=== PATIENT | male | born 1970 | race Caucasian/White ===

== ENCOUNTER 2017-06-01 02:17 | Emergency (ER) | payer MEDICARE, OTHER ==
[~2017-06-01] VITALS: Ht 172.7 cm; Wt 100.0 kg
[~2017-06-01 02:17] MED LIST: BENZ1TAB7 PO; CITA20TA6 PO; HAL2 PO; LEVO25TA53 PO; LOSA50TA6 PO; NITR0.4T32 SL; OMEP20CA16 PO; SIMV20TA6 PO
[2017-06-01 02:22] VITALS: Ht 172.7 cm; Wt 100.0 kg
[2017-06-01] MEDS ORDERED: ONDANSETRON 4 MG INJ IV STA (02:33)
[2017-06-01] MEDS ORDERED: MECLIZINE 12.5 MG TAB PO ONE (03:00)
[2017-06-01 03:11] LABS: BASOPHIL # 0.1 10^3/ul (0.0-0.1); EOSINOPHILS # 0.4 10^3/ul (0.0-0.5); EOSINOPHILS % 5.1 % (0.0-7.0); HEMATOCRIT 44.4 % (42.0-52.0); LYMPHOCYTES # 2.3 10^3/ul (0.8-2.9); LYMPHOCYTES % 31.8 % (15.0-51.0); MEAN CORPUSCULAR HEMOGLOBIN 30.5 pg (29.0-33.0); MEAN CORPUSCULAR HGB CONC 33.8 g/dl (32.0-37.0); MEAN CORPUSCULAR VOLUME 90.4 fl (82.0-101.0); MEAN PLATELET VOLUME 10.2 fl (7.4-10.4); MONOCYTE # 0.7 10^3/ul (0.3-0.9); MONOCYTES % 10.1 % (0.0-11.0); NEUTROPHIL # 3.8 10^3/ul (1.6-7.5); NEUTROPHILS % 51.7 % (39.0-77.0); PLATELET COUNT 264 10^3/UL (140-415); RED BLOOD COUNT 4.91 10^6/ul (4.70-6.10); RED CELL DISTRIBUTION WIDTH 12.4 % (11.5-14.5); WHITE BLOOD COUNT 7.2 10^3/ul (4.8-10.8)
[2017-06-01 03:30] LABS: INR 0.96; PARTIAL THROMBOPLASTIN TIME 28.8 Sec (25.0-35.0); PROTIME 12.8 Sec (12.2-14.2)
[2017-06-01 03:31] LABS: ANION GAP 15 (8-16); BLOOD UREA NITROGEN 17 mg/dl (7-20); CALCIUM 8.8 mg/dl (8.4-10.2); CARBON DIOXIDE 27 mmol/L (21-31); CHLORIDE 105 mmol/L (97-110); CREATININE 0.98 mg/dl (0.61-1.24); GLUCOSE 124 mg/dl (70-220); POTASSIUM 4.7 mmol/L (3.5-5.1); SODIUM 142 mmol/L (135-144)
--- NOTE | 2017-06-01 03:59 | RADRPT ---
PROCEDURE: CT BRAIN WITHOUT CONTRAST CLINICAL INDICATION: 46-year-old male with headaches and dizziness. TECHNIQUE: The study was performed utilizing a GE [employer] VCT 64-slice CT scanner. Direct axia l sections were obtained from the foramen magnum to the vertex without the use of intravenous contra st material. Sagittal and coronal reformations were obtained. One or more the following dose reduct ion techniques were utilized: automated exposure control, adjustment of the mA and/or kV according t o patient's size and/or the use of iterative reconstruction technique. The images were viewed on a PACS workstation. CTD/vol = 45.0 mGy; Total Exam DLP = 810.3 mGy-cm. COMPARISON: None. FINDINGS: The ventricles have a normal size, shape and position. There is no evidence for mass effect or midl ine shift. There are no intracranial areas of abnormal attenuation. There is no evidence for acute intra or extra-axial blood. The bony calvarium is intact. There is mild mucosal thickening within t he ethmoid air cells bilaterally. No air-fluid levels are noted. The mastoid air cells are without s ignificant soft tissue. IMPRESSION: 1. The intracranial contents are unremarkable on this noncontrast CT scan of the brain. 2. Mild mucosal thickening bilateral ethmoid air cells. .Marin Arenas MD, Date Time Electronically viewed and signed by .Marin Arenas MD, on 06/01/2017 03:59 .M/
--- NOTE | 2017-06-01 04:00 | RADRPT ---
PROCEDURE: CHEST - 1 VIEW CLINICAL INDICATION: 46-year-old male with chest pain and headaches. TECHNIQUE: A single frontal AP upright portable view of the chest was performed. The images were reviewed on a PACS workstation. COMPARISON: CR CHEST 09/02/2015; CR PORTABLE CHEST 06/26/2008 FINDINGS: The cardiomediastinal silhouette is within normal limits. There is a shallow inspiration. There is m ild bibasilar subsegmental atelectasis. There is no evidence for an infiltrate. There is no eviden ce for congestive heart failure. There is no evidence for pneumothorax. The osseous structures are i ntact. IMPRESSION: Shallow inspiration with mild bibasilar subsegmental atelectasis. .Marin Arenas MD, Date Time Electronically viewed and signed by .Marin Arenas MD, on 06/01/2017 04:00 .M/
[2017-06-01 04:02] LABS: TROPONIN-I < 0.012 ng/ml (0.00-0.12)
[2017-06-01 04:37] VITALS: BP 135/94; PULSE 89; RESP 18
[2017-06-01] MEDS ORDERED: NIT4 SL (05:29)
[2017-06-01] MEDS ORDERED: MECL12.574 PO (05:42)
--- NOTE | 2017-06-01 05:42 | ERD ---
ER Documentation Chief Complaint Date/Time DATE: 06/01/17 TIME: 05:40 Chief Complaint dizziness this evening, denies pain, SOB, N/V HPI This is a 46-year-old male brought in by ambulance secondary seeding. He says he feels nervous. He has been mild typical vomiting. Patient brought in by rescue. No head trauma. None no focal neurological complaints. No chest pain. Shortness of breath. No other current complaints. Patient is demented episode of dizziness like this before per the patient. No change in medications. ROS All systems reviewed and are negative except as per history of present illness. Medications Home Meds Active Scripts Nitroglycerin* (Nitroglycerin* SL) 0.4 Mg Tab.subl, 0.4 MG SL Q5MIN Y for CHEST PAIN, #30 BOTTLE Prov:LUCIUS CARRTiago 09/03/15 Reported Medications Nitroglycerin* (Nitrostat*) 0.4 Mg Tab.subl, 0.4 MG SL Q5MIN Y for CHEST PAIN, BOTTLE 06/01/17 Citalopram Hydrobromide* (Citalopram Hydrobromide*) 20 Mg Tablet, 30 MG PO DAILY , #30 TAB 09/02/15 Benztropine Mesylate* (Benztropine Mesylate*) 1 Mg Tablet, 1 MG PO DAILY 09/02/15 Haloperidol* (Haldol*) 2 Mg Tab, 2 MG PO DAILY, TAB 09/02/15 Losartan Potassium* (Losartan Potassium*) 50 Mg Tablet, 50 MG PO DAILY, #30 09/02/15 Levothyroxine Sodium* (Levothyroxine Sodium*) 25 Mcg Tablet, 25 MCG PO DAILY 09/02/15 Discontinued Reported Medications Omeprazole* (Omeprazole*) 20 Mg Capsule.dr, 20 MG PO DAILY 09/02/15 Simvastatin (Simvastatin) 20 Mg Tablet, 20 MG PO DAILY 09/02/15 Allergies Allergies: Coded Allergies: codeine (Unverified Allergy, Severe, 06/01/17) Penicillins (Unverified Allergy, Mild, 06/01/17) chlorpromazine (Unverified Allergy, Mild, 06/01/17) banana (Unverified Adverse Reaction, Intermediate, 06/01/17) PMhx/Soc History of Surgery: Yes (ORAL) Anesthesia Reaction: No Hx Neurological Disorder: No Hx Respiratory Disorders: No Hx Cardiac Disorders: Yes (ANGINA,PALPITATION) Hx Psychiatric Problems: Yes (DEPRESSION,SCHIZOPHRENIA) Hx Miscellaneous Medical Probl: Yes (HTN ) Hx Alcohol Use: No Hx Substance Use: No Hx Tobacco Use: No Smoking Status: Former smoker Physical Exam Vitals Vital Signs Date Time Temp Pulse Resp B/P Pulse Ox O2 Delivery O2 Flow Rate FiO2 06/01/17 04:37 89 18 135/94 95 Room Air 06/01/17 02:24 76 18 179/110 98 Room Air 06/01/17 02:22 98.6 74 16 175/93 98 Physical Exam Const: [] Head: Atraumatic Eyes: Normal Conjunctiva ENT: Normal External Ears, Nose and Mouth. Neck: Full range of motion..~ No meningismus. Resp: Clear to auscultation bilaterally Cardio: Regular rate and rhythm, no murmurs Abd: Soft, non tender, non distended. Normal bowel sounds Skin: No petechiae or rashes Back: No midline or flank tenderness Ext: No cyanosis, or edema Neur: Awake and alert Psych: Normal Mood and Affect Result Diagram: 06/01/17 0255 06/01/17 0255 Results 24 hrs Laboratory Tests Test 06/01/17 02:55 White Blood Count 7.210^3/ul Red Blood Count 4.9110^6/ul Hemoglobin 15.0g/dl Hematocrit 44.4% Mean Corpuscular Volume 90.4fl Mean Corpuscular Hemoglobin 30.5pg Mean Corpuscular Hemoglobin Concent 33.8g/dl Red Cell Distribution Width 12.4% Platelet Count 48517^3/UL Mean Platelet Volume 10.2fl Neutrophils % 51.7% Lymphocytes % 31.8% Monocytes % 10.1% Eosinophils % 5.1% Basophils % 1.0% Nucleated Red Blood Cells % 0.0/100WBC Neutrophils # 3.810^3/ul Lymphocytes # 2.310^3/ul Monocytes # 0.710^3/ul Eosinophils # 0.410^3/ul Basophils # 0.110^3/ul Nucleated Red Blood Cells # 0.010^3/ul Prothrombin Time 12.8Sec Prothrombin Time Ratio 1.0 INR International Normalized Ratio 0.96 Activated Partial Thromboplast Time 28.8Sec Sodium Level 142mmol/L Potassium Level 4.7mmol/L Chloride Level 105mmol/L Carbon Dioxide Level 27mmol/L Anion Gap 15 Blood Urea Nitrogen 17mg/dl Creatinine 0.98mg/dl Glucose Level 124mg/dl Calcium Level 8.8mg/dl Troponin I < 0.012ng/ml Current Medications Medications (Trade) Dose Ordered Sig/Trung Route PRN Reason Start Time Stop Time Status Last Admin Dose Admin Ondansetron HCl (Zofran Inj) 4 mg ONCE STAT IV 06/01/17 02:33 06/01/17 02:35 DC 06/01/17 02:52 Meclizine HCl (Antivert) 25 mg ONCE ONCE PO 06/01/17 03:00 06/01/17 03:01 DC 06/01/17 02:52 Procedures/MDM EKG: Rate/Rhythm: [Normal Sinus Rhythm] QRS, ST, T-waves: [No changes consistent w/ acute ischemia] Impression: [No evidence of ischemia or arrhythmia] Chest X-ray 1V Interpreted by me: Soft Tissue: No acute abnormalities Bones: No acute abnormalities Mediastinum/Cardiac Silhouette/Lungs: [No acute abnormalities] Medical decision-makin-year-old male with dizziness and this is resolved. Patient responded well to meclizine. At this point no evidence of structural neurological issue. At this point no focal neurological issue. Patient is well -appearing. Patient will be discharged home on meclizine. Return for worsening symptoms. Departure Diagnosis: Primary Impression: Dizziness Condition: Stable LUCIUS CARR Jun 01, 2017 05:42
== END 2017-06-01 05:55 | disposition home or self-care (01) ==
LOC: E/R 02:17
DX: R42 Dizziness and giddiness (principal); I10 Essential (primary) hypertension; R07.9 Chest pain, unspecified; Z87.891 Personal history of nicotine dependence
CPT/HCPCS: 36415; 70450; 71010; 80048; 84484; 85025; 85610; 85730; 93005; 96374; 99285; J2405